=== PATIENT | female | born 1970 | race Hispanic/Latino ===

== ENCOUNTER 2020-04-13 13:34 | Outpatient (CLI) | payer OTHER | END 2020-04-13 13:35 | disposition home or self-care (01) | LOC: PF 13:34 | PROVIDERS: ATTEND Internal Medicine | DX: J45.909 Unspecified asthma, uncomplicated (principal); I10 Essential (primary) hypertension; F32.9 Major depressive disorder, single episode, unspecified | CPT/HCPCS: 94010; 94729 ==